=== PATIENT | male | born 1970 | race African-American/Black ===

== ENCOUNTER 2024-03-28 16:10 | Emergency (ER) | payer BC ==
[~2024-03-28] VITALS: Ht 203.2 cm; Wt 111.1 kg
[2024-03-28 16:28] VITALS: BP_SYST 112; PULSE 93; RESP 16; TEMP 98.3; O2SAT 97
[2024-03-28 19:20] VITALS: BP_SYST 115; PULSE 90; RESP 18; TEMP 98.3; O2SAT 98
== END 2024-03-28 19:20 | disposition home or self-care (01) ==
LOC: SED 16:10
DX: R22.42 Localized swelling, mass and lump, left lower limb (principal); M79.662 Pain in left lower leg
CPT/HCPCS: 93971; 99284